=== PATIENT | male | born 1975 | race Caucasian/White ===

== ENCOUNTER 2017-03-15 02:16 | Emergency (ER) | payer OTHER ==
[~2017-03-15] VITALS: Ht 182.9 cm; Wt 120.0 kg
[2017-03-15 02:42] VITALS: BP 174/90; PULSE 89; RESP 18; TEMP 98.7; O2SAT 98
[2017-03-15] MEDS ORDERED: IBUP800T23 PO (02:56)
--- NOTE | 2017-03-15 02:56 | PD ---
HPI Chief Complaint: Musculoskeletal Complaint Time Seen by Provider: 02:30 Travel History International Travel<30 days: No Contact w/Intl Traveler<30days: No Traveled to known affect area: No History of Present Illness HPI Patient is a 41-year-old male brought in by law enforcement for evaluation of left leg pain and weakness. Patient has had no new injury or trauma. Patient states he has a neurostimulator implanted which he left on longer than he normally would. He states he normally turns off at 4 PM after work however tonight he went out and it was on the entire time. Patient was subsequently placed under arrest unable to turn off his neuro stimulator because he did not have the device with him. The device is apparently at his work. Patient states he has pain that radiates down the back of his left leg causing it to feel like it is asleep. He states the symptoms started after he was sitting on a concrete bench approximately 2-3 hours prior to arrival. Patient denies any new injury or trauma. He denies any bladder or bowel incontinence, some no saddle paresthesia. He states the pain in his leg feels better when he crosses his left leg over the right leg. PFSH Past Medical History Diverticulitis: Yes Musculoskeletal: Yes (CHRONIC BACK PAIN) Tetanus Vaccination: < 5 Years Influenza Vaccination: No Past Surgical History Abdominal Surgery: Yes (HERNIA REPAIR) Appendectomy: Yes Neurologic Surgery: Yes (SPINAL FUSIONS, BONE GRAFTS, NEURO STIMULATOR( [employer])) Social History Alcohol Use: Yes (OCC) Tobacco Use: No Substance Use: No Allergies-Medications (Allergen,Severity, Reaction): Coded Allergies: Cephalosporins (Verified Allergy, Unknown, 03/15/17) Penicillin (Verified Allergy, Unknown, 03/15/17) Opiate Agonists (Narcotics) (Verified Adverse Reaction, Severe, 03/15/17) IN RECOVERY Reported Meds & Prescriptions Reported Meds & Active Scripts Active Ibuprofen 800 Mg Tab 800 Mg PO Q6HR PRN Review of Systems Except as stated in HPI: all other systems reviewed are Neg Musculoskeletal: Positive: Myalgias, Pain, No: Weakness Neurologic: Positive: Sensory Disturbance, No: Focal Abnormalities Physical Exam Narrative GENERAL: Overweight, well-developed, alert male. Resting comfortably in no acute distress. SKIN: Focused skin assessment warm/dry. HEAD: Atraumatic. Normocephalic. EYES: Pupils equal and round. No scleral icterus. No injection or drainage. ENT: No nasal bleeding or discharge. Mucous membranes pink and moist. NECK: Trachea midline. No JVD. CARDIOVASCULAR: Regular rate and rhythm. No murmur appreciated. RESPIRATORY: No accessory muscle use. Clear to auscultation. Breath sounds equal bilaterally. GASTROINTESTINAL: Abdomen soft, non-tender, nondistended. Hepatic and splenic margins not palpable. MUSCULOSKELETAL: No obvious deformities. No clubbing. No cyanosis. No edema. No spinal tenderness or step-off noted. No tenderness to palpation in paraspinal musculature and lumbar region. NEUROLOGICAL: Awake and alert. No obvious cranial nerve deficits. Motor grossly within normal limits. Normal speech. PSYCHIATRIC: Appropriate mood and affect; insight and judgment normal. Data Data Last Documented VS Vital Signs Date Time Temp Pulse Resp B/P Pulse Ox O2 Delivery O2 Flow Rate FiO2 03/15/17 02:42 98.7 89 18 174/90 98 Orders Ibuprofen (Motrin) (03/15/17 03:00) [facility] Medical Decision Making Medical Screen Exam Complete: Yes Emergency Medical Condition: Yes Interpretation(s) Vital Signs Date Time Temp Pulse Resp B/P Pulse Ox O2 Delivery O2 Flow Rate FiO2 03/15/17 02:42 98.7 89 18 174/90 98 Differential Diagnosis Spasm versus strain versus discogenic pain versus sciatica versus malingering versus other Narrative Course Patient is a 41-year-old male presenting to emergency Department with moderate enforcement for medical clearance due to left leg pain. Patient was seen ambulating in the emergency department. Patient is neurologically intact on exam. Patient is moving all 4 extremities. Discussed am findings with my attending physician prior to discharge. He is encouraged to carry his device with him so he can turn his stimulator off when needed. He was encouraged to follow up with a primary doctor or at the clinic. He was given a prescription for ibuprofen, first dose was given in the emergency department. He was advised he can return for any new or worsening symptoms. He verbalized understanding of instructions. Patient is stable for discharge to law enforcement. Diagnosis Primary Impression: Sciatica of left side Additional Impression: Medical clearance for incarceration Referrals: [facility] Patient Instructions: General Instructions, Sciatica (ED) Additional Instructions: Establish care with a primary doctor or at the [facility] Continue range of motion exercises, avoid bed rest, avoid exacerbating activities, alternate heat and ice to affected area Return to emergency department for any new or worsening symptoms Med/Other Pt SpecificInfo: Prescription(s) given Scripts Ibuprofen 800 Mg [id number] Mg PO Q6HR PRN (PAIN) #40 TAB Ref 0 Prov:Kalyani Sandoval 03/15/17 Disposition: [address] LAW ENFORCEMNT Condition: Stable Kalyani Sandoval Mar 15, 2017 02:56
[2017-03-15] MEDS ORDERED: IBUPROFEN 800 MG TAB PO ONE (03:00)
== END 2017-03-15 03:37 ==
LOC: NEPD 02:16
DX: M54.32 Sciatica, left side (principal)
CPT/HCPCS: 99283

== ENCOUNTER 2018-09-13 20:23 | Observation (INO) ==
--- NOTE | 2018-09-13 21:10 | ED ---
HPI General Chief Complaint: Chest Pain Stated Complaint: tightness in the chest/pain in L arm and jaw Source: patient Mode of arrival: ambulatory Limitations: no limitations History of Present Illness HPI narrative: The patient is a 43-year-old male who presents to the emergency department for chest pain. The patient states he developed dull left- sided chest pain approximately 3 days ago. The chest pain is described as dull , occasionally aching, occasionally sharp. The pain radiates to left upper extremity now is radiating up to the left neck and left jaw. The patient does complain of mild shortness of breath and diaphoresis but denies any nausea or vomiting. The patient states his chest pain is not exertional, can occur at rest, also occasionally occurs while he is driving. He denies any particular pain with certain movements of the left upper extremity. The patient does have a previous history of hypertension, but takes no current medications. He denies any history of hyperlipidemia, diabetes, or current tobacco use. The patient states he has not had a physical examination by a physician in over 3 years. He denies any significant family medical history for early heart disease. Symptoms are moderate and progressive. There are no current alleviating factors. MD complaint: Reports chest pain STEMI Alert: No Onset (ago): day(s) Duration: intermittent Onset: during rest Pain location: Reports left chest Severity: moderate Severity scale (1-10): 5 Quality: Reports aching and sharp Pain radiation: Reports LUE and neck Relieving factors: nothing Exacerbating factors: other Associated symptoms: Reports diaphoresis and dyspnea Treatments prior to arrival chest pain: Reports none Related Data Home Medications Medication Instructions Recorded Confirmed No Known Home Medications 09/13/18 09/13/18 Allergies Allergy/AdvReac Type Severity Reaction Status Date / Time cefepime Allergy Unknown Hives Verified 09/13/18 21:07 ceftaroline fosamil Allergy Unknown Hives Verified 09/13/18 21:07 penicillin G Allergy Unknown Hives Verified 09/13/18 21:07 Opioids - Morphine Analogues AdvReac Severe Rash Verified 09/13/18 21:07 Opioids-Meperidine and AdvReac Severe Rash Verified 09/13/18 21:07 Related Opioids-Methadone and Related AdvReac Severe Rash Verified 09/13/18 21:07 Review of Systems ROS: all other systems reviewed are negative REPLACED BY [facility] Medical History Medical History History of high blood pressure (Acute) Surgical History Surgical History History of back surgery (Acute) Hx of appendectomy (Acute) Hx of hernia repair (Acute) Social History Social History Substance History: No History of Abuse Smoking Status: Never smoker How Often Do You Have a Drink Containing Alcohol: Monthly or less Recent Travel in [facility] within the Last 8 Weeks: No Recent Out of Country Travel within the Last 8 Weeks: No Exam Narrative Exam Narrative: GENERAL: Awake, alert, pleasant 43-year-old male who appears his stated age and is in no acute respiratory distress. SKIN: Focused skin assessment warm/dry. HEAD: Atraumatic. Normocephalic. EYES: Pupils equal and round. No scleral icterus. No injection or drainage. ENT: No nasal bleeding or discharge. Mucous membranes pink and moist. NECK: Trachea midline. No JVD. No tenderness over the paracervical vertebral muscles or midline cervical vertebrae. CARDIOVASCULAR: Regular rate and rhythm. No murmur appreciated. Heart rate in the 80s. Palpation left upper chest does not reproduce symptoms. Movement of the left upper extremity does not reproduce symptoms. RESPIRATORY: No accessory muscle use. Clear to auscultation. Breath sounds equal bilaterally. GASTROINTESTINAL: Abdomen soft, non-tender, nondistended. MUSCULOSKELETAL: No obvious deformities. No clubbing. No cyanosis. No edema. NEUROLOGICAL: Awake and alert. No obvious cranial nerve deficits. Motor grossly within normal limits. Normal speech. PSYCHIATRIC: Appropriate mood and affect; insight and judgment normal. Course Initial Documented Vital Signs Temperature 98.6 F 09/13/18 20:51 Pulse Rate 89 09/13/18 20:51 Respiratory Rate 18 09/13/18 20:51 Blood Pressure 153/96 H 09/13/18 20:51 Pulse Oximetry 98 09/13/18 20:51 Last Documented Vital Signs Temperature 98.6 F 09/13/18 20:51 Pulse Rate 71 09/13/18 22:25 Respiratory Rate 18 09/13/18 22:25 Blood Pressure 141/86 H 09/13/18 22:25 Pulse Oximetry 99 09/13/18 22:25 Medical Decision Making MDM Narrative Medical decision making narrative: IV was established, labs are drawn and sent, and the patient was placed on cardiac telemetry monitoring and continuous pulse oximetry monitoring. EKG was ordered and interpreted. The patient was administered aspirin, Nitropaste, and troponin/CPK were sent to lab. Chest x- ray was obtained. The patient's chest x-ray was unremarkable. EKG revealed no obvious ischemic changes, the patient's initial troponin and CPK were unremarkable. The patient has one risk factor, history of hypertension, with typical/atypical symptoms. I had a discussion with the patient regarding serial troponins and outpatient follow-up with a stress test versus 23-hour observation with serial cardiac enzymes, n.p.o. after midnight, possible stress test in the morning. After discussion the patient would prefer to stay in the hospital for serial enzymes and stress test in the morning. Therefore, [facility] were paged for 23-hour observation to the chest pain center at [facility]. The patient will be kept n.p.o. after midnight. The patient does state he has some relief of the left neck, jaw, chest pain with the nitro, however, still continues to have a mild ache in the left upper extremity. I discussed the patient with Dr. Ching who agrees with 23-hour observation. Medical Screen Exam Complete: Yes Emergency Medical Condition: Yes Differential Diagnosis Differential Diagnosis: Differential diagnosis includes STEMI, ACS, cervical radiculopathy, costochondritis, GERD, esophageal spasm, pancreatitis, Pancoast tumor, neuralgia. Lab Data Lab results reviewed: Yes I reviewed the patient's lab results. Result diagrams: 09/13/18 21:25 09/13/18 21:25 Lab Results 09/13/18 09/13/18 09/13/18 Range/Units 21:25 21:25 22:00 CBC w Diff Auto diff final WBC 7.1 (4.0-11.0) th/mm3 RBC 5.23 (4.50-5.90) mil/mm3 Hgb 15.5 (13.0-17.0) gm/dL Hct 46.8 (39.0-51.0) % MCV 89.4 (80.0-100.0) fL MCH 29.6 (27.0-34.0) pg MCHC 33.1 (32.0-36.0) % RDW 13.2 (11.6-17.2) % Plt Count 212 (150-450) th/mm3 MPV 9.5 (7.0-11.0) fL Neut % (Auto) 55.4 (16.0-70.0) % Lymph % (Auto) 35.1 (9.0-44.0) % [place] % (Auto) 6.9 (0.0-8.0) % Eos % (Auto) 1.6 (0.0-4.0) % Baso % (Auto) 1.0 (0.0-2.0) % Neut # (Auto) 3.9 (1.8-7.7) th/mm3 Lymph # (Auto) 2.5 (1.0-4.8) th/mm3 [place] # (Auto) 0.5 (0.0-0.9) th/mm3 Eos # (Auto) 0.1 (0.0-0.4) th/mm3 Baso # (Auto) 0.1 (0.0-0.2) th/mm3 WBC Differential . Differential Comment . PT 10.6 (9.8-11.6) sec INR 1.0 Ratio APTT 24.9 (23.4-31.7) sec Sodium 137 (136-145) meq/L Potassium 3.8 (3.5-5.1) meq/L Chloride 102 (98-107) meq/L Carbon Dioxide 29.6 (21.0-32.0) meq/L Anion Gap 5 (5-15) meq/L BUN 12 (7-18) mg/dL Creatinine 1.10 (0.60-1.30) mg/dL Estimated GFR 72 L (>89) mL/min Random Glucose 101 (74-106) mg/dL Calcium 8.2 L (8.5-10.1) mg/dL Magnesium 2.1 (1.5-2.5) mg/dL Total Bilirubin 1.4 H (0.2-1.0) mg/dL AST 34 (15-37) U/L ALT 31 (12-78) U/L Alkaline Phosphatase 61 (45-117) U/L Total Creatine Kinase 239 (39-308) U/L CK-MB (CK-2) 1.0 (0.5-3.6) ng/mL Troponin I Less than 0.02 L (0.02-0.05) ng/mL Total Protein 7.0 (6.4-8.2) g/dL Albumin 3.4 (3.4-5.0) g/dL Lipase 138 (73-393) U/L Imaging Data Attestation: I personally reviewed and interpreted this imaging study as follows : My impression: No acute cardiopulmonary disease Radiologist's impression: Chest X-Ray 09/13/18 21:03 CONCLUSION: Spinal stimulator, otherwise negative for acute process ECG Data EKG Prior to Arrival: No Attestation: I personally reviewed and interpreted this ECG as follows: Interpretation: EKG reveals normal sinus rhythm with a rate 84. Inverted T wave in lead III. Discharge Plan Discharge Disposition Patient Disposition: ED Admit(ED Internal Use Only) Discharge Condition Condition: Stable Discharge Order Discharge Orders: ED Use Only Admit Order (Routine); Ordered 09/13/18 Ordered By: Kade Hinkle Discharge Details Diagnosis: Chest pain Physicians Team ED Provider: Kade Hinkle Primary Care Provider: Floyd Hernandez III Rxs /Orders / Referrals /Forms Prescriptions: No Action No Known Home Medications RF: 0 Discharge Instructions Patient Printed Instructions: Chest Pain (ED) Status ED Status: Admitted Observation Patient
--- NOTE | 2018-09-13 21:28 | XR ---
EXAM DATE: 09/13/2018 9:21 PM EST AGE/SEX: 43 years / Male INDICATIONS: Chest pain and left arm pain for three days. CLINICAL DATA: This is the patient's initial encounter. Patient reports that signs and symptoms have been present for 3 days and indicates a pain score of 3/10. MEDICAL/SURGICAL HISTORY: None. . Spinal stimulator. COMPARISON: . FINDINGS: A single AP view of the chest demonstrates the lungs to be symmetrically aerated without evidence of mass, infiltrate or effusion. The cardiomediastinal contours are unremarkable. Spinal stimulator is evident. Osseous structures are intact. CONCLUSION: Spinal stimulator, otherwise negative for acute process Electronically signed by: Ned Gill MD Board Certified Radiologist 09/13/2018 9:26 PM EST
[2018-09-13 21:49] LABS: Baso # (Auto) 0.1 th/mm3 (0.0-0.2); Chloride 102 meq/L (98-107); Eos # (Auto) 0.1 th/mm3 (0.0-0.4); Eos % (Auto) 1.6 % (0.0-4.0); Hematocrit 46.8 % (39.0-51.0); Hemoglobin 15.5 gm/dL (13.0-17.0); Lymph # (Auto) 2.5 th/mm3 (1.0-4.8); Lymph % (Auto) 35.1 % (9.0-44.0); Mean Corpuscular HGB Conc 33.1 % (32.0-36.0); Mean Corpuscular Hemoglobin 29.6 pg (27.0-34.0); Mean Corpuscular Volume 89.4 fL (80.0-100.0); Mean Platelet Volume 9.5 fL (7.0-11.0); Mono # (Auto) 0.5 th/mm3 (0.0-0.9); Mono % (Auto) 6.9 % (0.0-8.0); Neut # (Auto) 3.9 th/mm3 (1.8-7.7); Neut % (Auto) 55.4 % (16.0-70.0); Platelet Count 212 th/mm3 (150-450); Potassium 3.8 meq/L (3.5-5.1); Red Blood Count 5.23 mil/mm3 (4.50-5.90); Red Cell Distribution Width 13.2 % (11.6-17.2); Sodium 137 meq/L (136-145); White Blood Count 7.1 th/mm3 (4.0-11.0)
[2018-09-13 21:52] LABS: Albumin 3.4 g/dL (3.4-5.0); Anion Gap 5 meq/L (5-15); Calcium 8.2 mg/dL (8.5-10.1); Carbon Dioxide 29.6 meq/L (21.0-32.0); Lipase 138 U/L (73-393)
[2018-09-13 21:53] LABS: Blood Urea Nitrogen 12 mg/dL (7-18); Glucose,Random 101 mg/dL (74-106); Magnesium 2.1 mg/dL (1.5-2.5)
[2018-09-13 21:55] LABS: Alanine Aminotransferase 31 U/L (12-78); Aspartate Aminotransferase 34 U/L (15-37); Glomerular Filtration Rate 72 mL/min (>89)
[2018-09-13 21:58] LABS: Alkaline Phosphatase 61 U/L (45-117); Creatine Kinase 239 U/L (39-308)
[2018-09-13 22:23] LABS: Activated Partial Thrombo Time 24.9 sec (23.4-31.7); Prothrombin Time 10.6 sec (9.8-11.6)
[2018-09-13 23:47] LABS: Creatine Kinase 202 U/L (39-308)
[2018-09-14 02:27] LABS: Creatine Kinase 197 U/L (39-308)
--- NOTE | 2018-09-14 07:15 | ECG ---
Date Performed: 09/14/2018 Time Performed: 01:30:28 PTAGE: 43 years EKG: Sinus rhythm BORDERLINE LEFT AXIS DEVIATION NONSPECIFIC INTRAVENTRICULAR CONDUCTION DELAY MINIMAL VOLTAGE CRITERI A FOR LVH, CONSIDER NORMAL VARIANT NONSPECIFIC T-WAVE ABNORMALITY BORDERLINE ECG PREVIOUS TRACING : 09/13/2018 21.04 No significant change from previous tracing noted. DOCTOR: Jevon Acosta Interpretating Date/Time 09/14/2018 07:13:58
--- NOTE | 2018-09-14 07:16 | ECG ---
Date Performed: 09/13/2018 Time Performed: 21:04:54 PTAGE: 43 years EKG: Sinus rhythm BORDERLINE LEFT AXIS DEVIATION MINIMAL VOLTAGE CRITERIA FOR LVH, CONSIDER NORMAL VARIANT BORDERLINE ECG NO PREVIOUS TRACING DOCTOR: Jevon Acosta Interpretating Date/Time 09/14/2018 07:15:11
[2018-09-14] MEDS ORDERED: Acetaminophen 325 MG Tablet PO PRN (08:41)
[2018-09-14] MEDS ORDERED: Aspirin 325 MG Tablet PO SCH (09:00)
[2018-09-14 09:27] VITALS: O2SAT 96
--- NOTE | 2018-09-14 09:44 | P.HP ---
History of Present Illness Primary Care Physician: Floyd Hernandez III, MD Chief Complaint: Chest pain History of Present Illness: This is a 43-year-old male patient with a known medical history of hypertension presented to the ED with complaints of chest pain. Patient states that over the last 3 days has had intermittent chest pain, the pain started in his left chest started out sharp and burning in nature and then over the past few days it radiated up his neck as well as his left arm and became dull and aching. He states that the pain is on and off, denies any known alleviating factors, has not taken anything for the pain. He does state that deep breaths occasionally make it worse. He does admit to associated sweating and shortness of breath with the pain. He also admits to a decrease in appetite as well as possible dehydration, he states he has not been drinking enough water. He denies any associated nausea or vomiting. Patient denies any recent illness including fever, chills, cough, headache, abdomen, nausea, vomiting, diarrhea or dysuria. Patient does have a history of hypertension although is not prescribed any antihypertensives. He is on aware if he has any hyperlipidemia. He denies any significant family medical history of heart disease. Denies any tobacco abuse. Denies following with the PCP, has not seen him for over 3 years now. Does admit to a history of chronic back pain, has had multiple surgeries including a discectomy as well as fusion in L4 and L5. - Diagnosis (1) Chest pain Review of Systems All other systems reviewed negative except as stated in HPI PMFSH - History History Provided By: Patient - Medical History Medical History: Medical History (Last Reviewed 09/14/18 @ 09:39 by Winifred Brooks) History of high blood pressure - Surgical History Surgical History: Surgical History (Last Reviewed 09/14/18 @ 09:39 by Winifred Brooks) History of back surgery Hx of appendectomy Hx of hernia repair - Family History Family History: Family History (Last Updated 09/14/18 @ 09:39 by Winifred Brooks) Other Family history in first degree relatives is unremarkable - Social History I have reviewed the patient's Social History: Yes - Tobacco History Second Hand Smoke Exposure: No Smoking Status: Never smoker - Alcohol History How Often Do You Have a Drink Containing Alcohol: Monthly or less - Substance Use History Substance History: No History of Abuse - Travel History Recent Travel in the [place] Within the Last 8 Weeks: No Recent Travel Out of the Country Within the Last 8 Weeks: No - Immunization History Tetanus Immunization: Unsure Medications and Allergies Active Medications: Active Medications Acetaminophen (Tylenol) 650 mg PO Q4H PRN PRN Reason: HEADACHE OR TEMP > 101 F Last Admin: 09/14/18 09:15 Dose: 650 mg Aspirin (Aspirin Chew) 81 mg PO DAILY [facility] Last Admin: 09/14/18 08:12 Dose: 81 mg Nitroglycerin (Nitro-Bid 2% Oint) 1 inch TOPICAL Q6HR [facility] Last Admin: 09/14/18 06:05 Dose: Not Given Sodium Chloride (Ns Flush) 2 ml IV.FLUSH BID [facility] Last Admin: 09/14/18 09:16 Dose: 2 ml Sodium Chloride (Ns Flush) 2 ml IV.FLUSH PRN PRN PRN Reason: FLUSH AFTER USING IV ACCESS Allergies Allergy/AdvReac Type Severity Reaction Status Date / Time cefepime Allergy Unknown Hives Verified 09/13/18 21:07 ceftaroline fosamil Allergy Unknown Hives Verified 09/13/18 21:07 penicillin G Allergy Unknown Hives Verified 09/13/18 21:07 Opioids - Morphine Analogues AdvReac Severe Rash Verified 09/13/18 21:07 Opioids-Meperidine and AdvReac Severe Rash Verified 09/13/18 21:07 Related Opioids-Methadone and Related AdvReac Severe Rash Verified 09/13/18 21:07 Home Medications Medication Instructions Recorded Confirmed Type No Known Home Medications 09/13/18 09/13/18 History Exam Vital signs: Vital Signs 09/13/18 20:51 09/13/18 21:14 09/13/18 22:25 Temperature 98.6 F Pulse Rate 89 71 Respiratory Rate 18 18 Blood Pressure 153/96 H 141/86 H Pulse Oximetry 98 98 99 09/13/18 23:20 09/14/18 01:30 09/14/18 02:05 Temperature Pulse Rate 74 Respiratory Rate 18 16 Blood Pressure 130/88 Pulse Oximetry 99 96 09/14/18 04:00 09/14/18 08:00 Temperature 97.5 F L 97.1 F L Pulse Rate 67 63 Respiratory Rate 20 22 Blood Pressure 117/66 147/85 H Pulse Oximetry 95 96 Intake & Output 09/13/18 09/14/18 09/14/18 18:59 06:59 18:59 Intake Total 60 / 60 0 / 0 Output Total 300 / 300 Balance 60 / 60 -300 / -300 Weight 123.7 kg Intake: Oral 60 / 60 0 / 0 Output: Urine 300 / 300 Other: # Voids 1 # Bowel Movements 0 Narrative: GENERAL: Well-developed, well-nourished patient in [facility]. SKIN: Warm and dry. No rash. HEAD: Normocephalic. Atraumatic. EYES: Pupils equal and round. No scleral icterus. No injection or drainage. ENT: No nasal bleeding or discharge. Mucous membranes pink and moist. NECK: Supple. Trachea midline. CARDIOVASCULAR: Regular rate and rhythm. S1, S2 noted. No murmur appreciated. No reproducible chest pain. RESPIRATORY: No accessory muscle use. Clear to auscultation. Breath sounds equal bilaterally. GASTROINTESTINAL: Abdomen soft, non-tender, nondistended. Normoactive bowel sounds x4. MUSCULOSKELETAL: No obvious deformities. Extremities without clubbing, cyanosis , or edema. NEUROLOGICAL: Awake and alert. No obvious cranial nerve deficits. Motor grossly within normal limits. 5/5 muscle strength in bilateral upper and lower extremities. Normal speech. PSYCHIATRIC: Appropriate mood and affect; insight and judgment normal. Results - Labs CBC & Chem 7: 09/13/18 21:25 09/13/18 21:25 Labs: Laboratory Results - last 24 hr 09/13/18 09/13/18 09/13/18 21:25 21:25 22:00 CBC w Diff Auto diff final WBC 7.1 RBC 5.23 Hgb 15.5 Hct 46.8 MCV 89.4 MCH 29.6 MCHC 33.1 RDW 13.2 Plt Count 212 MPV 9.5 Neut % (Auto) 55.4 Lymph % (Auto) 35.1 [place] % (Auto) 6.9 Eos % (Auto) 1.6 Baso % (Auto) 1.0 Neut # (Auto) 3.9 Lymph # (Auto) 2.5 [place]ck[place] # (Auto) 0.5 Eos # (Auto) 0.1 Baso # (Auto) 0.1 WBC Differential . Differential Comment . PT 10.6 INR 1.0 APTT 24.9 Sodium 137 Potassium 3.8 Chloride 102 Carbon Dioxide 29.6 Anion Gap 5 BUN 12 Creatinine 1.10 Estimated GFR 72 L Random Glucose 101 Calcium 8.2 L Magnesium 2.1 Total Bilirubin 1.4 H AST 34 ALT 31 Alkaline Phosphatase 61 Total Creatine Kinase 239 CK-MB (CK-2) 1.0 Troponin I Less than 0.02 L Total Protein 7.0 Albumin 3.4 Lipase 138 09/13/18 09/14/18 23:15 01:45 CBC w Diff WBC RBC Hgb Hct MCV MCH MCHC RDW Plt Count MPV Neut % (Auto) Lymph % (Auto) [place] % (Auto) Eos % (Auto) Baso % (Auto) Neut # (Auto) Lymph # (Auto) [place] # (Auto) Eos # (Auto) Baso # (Auto) WBC Differential Differential Comment PT INR APTT Sodium Potassium Chloride Carbon Dioxide Anion Gap BUN Creatinine Estimated GFR Random Glucose Calcium Magnesium Total Bilirubin AST ALT Alkaline Phosphatase Total Creatine Kinase 202 197 CK-MB (CK-2) Troponin I Less than 0.02 L Less than 0.02 L Total Protein Albumin Lipase - Imaging Impressions Chest X-Ray 09/13/18 21:03 CONCLUSION: Spinal stimulator, otherwise negative for acute process Caprini VTE Risk Assessment Caprini VTE Risk Assessment: No/Low Risk (score <= 1) Caprini Risk Assessment Model: Point Value = 1 Point Value = 2 Point Value = 3 Point Value = 5 Age 41-60 Minor surgery BMI > 25 kg/m2 Swollen legs Varicose veins or History of unexplained or recurrent spontaneous Oral contraceptives or hormone replacement Sepsis (< 1 month) Serious lung disease, including pneumonia (< 1 month) Abnormal pulmonary function Acute myocardial infarction Congestive heart failure (< 1 month) History of inflammatory bowel disease Medical patient at bed rest Age 61-74 Arthroscopic surgery Major open surgery (> 45 min) Laparoscopic surgery (> 45 min) Malignancy Confined to bed (> 72 hours) Immobilizing plaster cast Central venous access Age >= 75 History of VTE Family history of VTE Factor V Leiden Prothrombin [id number] Lupus anticoagulant Anticardiolipin antibodies Elevated serum homocysteine Heparin-induced thrombocytopenia Other congenital or acquired thrombophilia Stroke (< 1 month) Elective arthroplasty Hip, pelvis, or leg fracture Acute spinal cord injury (< 1 month) Prophylaxis Regimen: Total Risk Factor Score Risk Level Prophylaxis Regimen 0-1 Low Early ambulation 2 Moderate Order ONE of the following: *Sequential Compression Device (SCD) *Heparin 5000 units SQ BID 3-4 Higher Order ONE of the following medications: *Heparin 5000 units SQ TID *Enoxaparin/Lovenox 40 mg SQ daily (WT < 150 kg, CrCl > 30 mL/min) *Enoxaparin/Lovenox 30 mg SQ daily (WT < 150 kg, CrCl > 10-29 mL/min) *Enoxaparin/Lovenox 30 mg SQ BID (WT < 150 kg, CrCl > 30 mL/min) AND/OR *Sequential Compression Device (SCD) 5 or more Highest Order ONE of the following medications: *Heparin 5000 units SQ TID (Preferred with Epidurals) *Enoxaparin/Lovenox 40 mg SQ daily (WT < 150 kg, CrCl > 30 mL/min) *Enoxaparin/Lovenox 30 mg SQ daily (WT < 150 kg, CrCl > 10-29 mL/min) *Enoxaparin/Lovenox 30 mg SQ BID (WT < 150 kg, CrCl > 30 mL/min) AND *Sequential Compression Device (SCD) Assessment and Plan - Assessment (1) Chest pain Code(s): R07.9 - Chest pain, unspecified Status: Acute - Plan This is a 43-year-old male patient who presented to the ED with Chest pain -Patient has been admitted to the chest pain center for observation. -Serial EKGs and serial troponins have been ordered for ruling out ACS purposes. Serial troponin flat. -EKG reviewed, controlled sinus rhythm, no ST changes to indicate ischemia. -Chest x-ray reviewed, no acute cardiopulmonary disease noted, spinal stimulator in place. -Patient continue on cardiac telemetry overnight, no arrhythmias were noted. -Patient was given aspirin, Nitropaste and ED with minimal improvement of the pain. -CBC and BMP reviewed, essentially unremarkable. -Added lipid panel to labs. Continue daily aspirin. -ACS has been ruled out. Patient will undergo a cardiac treadmill stress test to further rule out any ischemia. -Patient is stable at this time and agreeable to plan. -Further hospitalization and treatment plan will will depend on treadmill stress test results. DVT prophylaxis: Ambulation (1) Chest pain Qualifiers: Chest pain type: unspecified Qualified Code(s): R07.9 - Chest pain, unspecified
[2018-09-14 13:07] VITALS: BP 138/90; PULSE 68; RESP 20; TEMP 97.8
[2018-09-14 14:09] LABS: Chol/HDL Ratio 3.65 Ratio; HDL Cholesterol 44.1 mg/dL (40.0-60.0)
--- NOTE | 2018-09-14 15:16 | TR ---
Date Performed: 09/14/2018 Time Performed: 12:33:29 DOCTOR: Kelvin Paz DRUG LIST: CLINICAL HISTORY: REASON FOR TEST: Chest pain REASON FOR ENDING: OBSERVATION: CONCLUSION: Jaylan protocol performed, test stopped sec to reaching target heart rate. Good exerc ise tolerance. Good BP response. Recovery quick and unremarkable. No reproducible chest discomfort.Ma ximum BQ=248 Target HR Yaupfxjt=057.0% Maximum YA=293/90 Total Exercise Time=5:00 COMMENTS: Patient exercised using the Jaylan protocol. No electrocardiographic changes were seen to suggest ischemia. Hemodynamic response to exercise was normal. No significant arrhythmia was prese nt.
== END 2018-09-14 13:55 | disposition home or self-care (01) ==
LOC: PHED 20:23 → PHEDA 20:23 → PH3 23:33
PROVIDERS: ADMIT Hospitalist; ATTEND Hospitalist